=== PATIENT | male | born 1985 | race Caucasian/White ===

== ENCOUNTER 2019-12-16 02:53 | Emergency (ER) | payer SELFPAY ==
[~2019-12-16] VITALS: Ht 172.7 cm; Wt 81.8 kg
--- NOTE | 2019-12-16 03:37 | RAD ---
INDICATION: Reason: chest pain / Spl. Instructions: / History: COMPARISON: None. FINDINGS: Single view of chest obtained. Hypoexpansion with mild haziness at lung bases. Cardiac mediastinal silhouette is unremarkable. IMPRESSION: * Hypoexpansion with mild haziness at lung bases. Most likely causes mild atelectasis but early infiltrate not excluded. Electronically signed by: Christian Lynch MD (12/16/2019 3:34 AM) [id number]
--- NOTE | 2019-12-16 03:38 | PHYS DOC ---
Past Medical History Past Medical History: Bipolar, Schizophrenia Additional Past Medical Histor: ADD Past Surgical History: Other Additional Past Surgical Histo: DOUBLE HERNIA REPAIR Smoking Status: Current Every Day Smoker Alcohol Use: Occasionally General Adult EDM: Chief Complaint: CHEST PAIN HPI: HPI: Patient is a 34 year old male presents for evaluation of chest pain. Patient states he has chest pain 21 out of 24 hours a day. States the chest pain is been chronic and was more intense prior to arrival. He states he wanted to come to the hospital to get checked out. Patient was picked up at [facility]. He states he was looking for a bed. Patient is now requesting to go to [facility]. Review of Systems: Review of Systems: Constitutional: Denies fever or chills. [] Eyes: Denies change in visual acuity. [] HENT: Denies nasal congestion or sore throat. [] Respiratory: Denies cough or shortness of breath. [] Cardiovascular: Denies chest pain or edema. [] GI: Denies abdominal pain, nausea, vomiting, bloody stools or diarrhea. [] : Denies dysuria. [] Musculoskeletal: Denies back pain or joint pain. [] Integument: Denies rash. [] Neurologic: Denies headache, focal weakness or sensory changes. [] Endocrine: Denies polyuria or polydipsia. [] Lymphatic: Denies swollen glands. [] Psychiatric: Denies depression or anxiety. [] Heart Score: Risk Factors: Risk Factors: DM, Current or recent (<one month) smoker, HTN, HLP, family history of CAD, obesity. Risk Scores: Score 0 - 3: 2.5% MACE over next 6 weeks - Discharge Home Score 4 - 6: 20.3% MACE over next 6 weeks - Admit for Clinical Observation Score 7 - 10: 72.7% MACE over next 6 weeks - Early Invasive Strategies Physical Exam: PE: Constitutional: Well developed, well nourished, no acute distress, non-toxic appearance. [] HENT: Normocephalic, atraumatic, bilateral external ears normal, oropharynx moist, no oral exudates, nose normal. [] Eyes: PERRLA, EOMI, conjunctiva normal, no discharge. [] Neck: Normal range of motion, no tenderness, supple, no stridor. [] Cardiovascular:Heart rate regular rhythm, no murmur [] Lungs & Thorax: Bilateral breath sounds clear to auscultation [] Abdomen: Bowel sounds normal, soft, no tenderness, no masses, no pulsatile masses. [] Skin: Warm, dry, no erythema, no rash. [] Back: No tenderness, no CVA tenderness. [] Extremities: No tenderness, no cyanosis, no clubbing, ROM intact, no edema. [] Neurologic: Alert and oriented X 3, normal motor function, normal sensory function, no focal deficits noted. [] Psychologic: Affect normal, judgement normal, mood normal. [] Current Patient Data: Vital Signs: Vital Signs Date Time Temp Pulse Resp B/P (MAP) Pulse Ox O2 Delivery O2 Flow Rate FiO2 12/16/19 02:55 97.6 82 13 134/81 (98) 99 Room Air 97.6 EKG: EKG: EKG performed at 0301 hrs. Heart rate 77 normal sinus rhythm no ST elevations no ST depressions no acute DC [] Radiology/Procedures: Radiology/Procedures: [] Impression: Chest x-ray wet read no acute abnormalities Course & Med Decision Making: Course & Med Decision Making Pertinent Labs and Imaging studies reviewed. (See chart for details) [] Dragon Disclaimer: Dragon Disclaimer: This electronic medical record was generated, in whole or in part, using a voice recognition dictation system. Departure Departure Impression: Primary Impression: Chest pain Disposition: 01 DC HOME SELF CARE/HOMELESS Condition: STABLE Patient Instructions: Chest Pain (Nonspecific) JOI LANG DO Dec 16, 2019 03:38
[2019-12-16 03:56] VITALS: BP 107/52
--- NOTE | 2019-12-16 17:18 | EKG ---
[facility] [address] [place] [address] Test Date: 2019-12-16 Test Time: 03:01:42 Pat Name: SAY CHÁVEZ Department: Room: Gender: M Head Of [employer]: Shaunna : 1985 Requested By: JOI LANG Order Number: [id number] Reading MD: Measurements Intervals [place] Rate: 77 P: 56 ME: 126 QRS: 46 QRSD: 90 T: 64 QT: 356 QTc: 405 Interpretive Statements SINUS RHYTHM NORMAL ECG RI6.02 No previous ECG available for comparison
== END 2019-12-16 04:25 | disposition home or self-care (01) ==
LOC: ER 02:53
DX: R07.89 Other chest pain (principal); F31.9 Bipolar disorder, unspecified; F20.9 Schizophrenia, unspecified; F17.200 Nicotine dependence, unspecified, uncomplicated
CPT/HCPCS: 71045; 93005; 99283